=== PATIENT | female | born 1945 | race Caucasian/White ===

== ENCOUNTER 2018-03-29 10:16 | Outpatient (REF) | payer OTHER, SELFPAY ==
[2018-03-29 22:08] LABS: Cholesterol 166 mg/dL (50-200); Glucose 84 mg/dL (70-100); HDL Cholesterol 40 mg/dL (40-60); LDL CHOLESTEROL 115 mg/dL (<100); Triglyceride 53 mg/dL (30-150)
== END 2018-03-29 10:36 ==
LOC: NCHCN 10:16
PROVIDERS: PCP Nurse Practitioner Family; Visit Provider Family Medicine
DX: E78.5 Hyperlipidemia, unspecified (principal); I10 Essential (primary) hypertension
CPT/HCPCS: 80061; 82947; 83721

== ENCOUNTER 2019-02-17 21:53 | Outpatient (REF) | payer OTHER, SELFPAY ==
[2019-02-17 22:01] LABS: Abs Immature Grans 0.03 k/cumm (0.0-0.09); Absolute Basophil Count 0.02 k/cumm (0.0-0.2); Absolute Eosinophil Count 0.07 k/cumm (0.0-0.7); Absolute Lymphocyte Count 1.23 k/cumm (1.2-3.4); Absolute Neutrophil Count 9.55 k/cumm (1.2-6.7); Basophils % 0.2; Eosinophils % 0.6; HCT 44.2 % (36.0-46.0); HGB 14.3 g/dL (12.0-15.5); Immature Grans % 0.3; Lymphocytes % 10.7; Mean Corp. HGB Concentration 32.4 g/dL (32.0-36.0); Mean Corpuscular Hemoglobin 28.9 pg (27.0-33.0); Mean Corpuscular Volume 89.3 fL (80-95); Mean Platelet Volume 10.5 fL (8.0-11.0); Monocytes % 5.2; Platelet Count 315 x1000/uL (130-400); RBC 4.95 m/cumm (4.00-5.20); RBC Distribution Width 12.5 % (11.7-14.6)
[2019-02-17 22:29] LABS: Anion Gap 6.7 mmol/L (3-11); BUN 15 mg/dL (7-18); C-Reactive Protein 0.31 mg/dL (0.0-0.3); CO2 29.3 mmol/L (21.0-32.0); CREATININE 0.99 mg/dL (0.55-1.02); Calcium 9.6 mg/dL (8.5-10.1); Chloride 105 mmol/L (98-107); Estimated GFR 55.29 (mL/min/1.73m2); Glucose 88 mg/dL (74-106); Sodium 141 mmol/L (136-145); TSH 2.34 uIU/mL (0.36-3.74)
== END 2019-02-17 22:13 ==
LOC: NCHCN 21:53
PROVIDERS: PCP Nurse Practitioner Family; Visit Provider Nurse Practitioner Family
DX: R20.2 Paresthesia of skin (principal); I10 Essential (primary) hypertension
CPT/HCPCS: 80048; 85652; 84443; 85025; 86140

== ENCOUNTER 2019-02-21 11:44 | Outpatient (REF) | payer OTHER, SELFPAY ==
[2019-02-21 22:24] LABS: HCT 43.5 % (36.0-46.0); HGB 14.1 g/dL (12.0-15.5); Mean Corp. HGB Concentration 32.4 g/dL (32.0-36.0); Mean Corpuscular Volume 89.3 fL (80-95); Mean Platelet Volume 10.4 fL (8.0-11.0); Platelet Count 328 x1000/uL (130-400); RBC 4.87 m/cumm (4.00-5.20); RBC Distribution Width 12.4 % (11.7-14.6); White Blood Cell Count 7.32 k/cumm (4.4-10.8)
[2019-02-21 23:04] LABS: ESR 13 mm/hr (0-30)
[2019-02-21 23:08] LABS: Vitamin B12 254 pg/mL (193-986)
[2019-02-21 23:18] LABS: C-Reactive Protein 0.33 mg/dL (0.0-0.3)
[2019-02-22 12:28] LABS: Vitamin D 25 Total 7.7 ng/ml (30-100)
== END 2019-02-21 12:04 ==
LOC: NCHCN 11:44
PROVIDERS: PCP Nurse Practitioner Family; Visit Provider Family Medicine
DX: R20.2 Paresthesia of skin (principal); M79.10 Myalgia, unspecified site; Z71.3 Dietary counseling and surveillance; E55.9 Vitamin D deficiency, unspecified
CPT/HCPCS: 82306; 85027; 85652; 82607; 86140

== ENCOUNTER 2019-04-12 14:17 | Outpatient (REF) | payer OTHER, SELFPAY ==
[2019-04-12 23:19] LABS: Vitamin B12 720 pg/mL (193-986)
[2019-04-13 06:48] LABS: Vitamin D 25 Total 27.1 ng/ml (30-100)
== END 2019-04-12 14:37 ==
LOC: NCHCN 14:17
PROVIDERS: PCP Nurse Practitioner Family; Visit Provider Family Medicine
DX: E53.8 Deficiency of other specified B group vitamins (principal); E55.9 Vitamin D deficiency, unspecified
CPT/HCPCS: 82306; 82607

== ENCOUNTER 2020-06-04 13:30 | Outpatient (REF) | payer OTHER, SELFPAY ==
--- NOTE | 2020-06-04 11:30 | PAPFT_PTH ---
PATIENT: Jazmyne Salinas LOC: [facility] U#:[id number] AGE/SX: 74/F ROOM: RE06/04/[address]: Amy Luz : 1945 BED: DIS: 06/04/2020 SPEC #: [id number] RECD: 06/05/20 12:56 STATUS: CK REQ #: [id number] TOMMIE: 06/04/20 11:[address]: Amy Luz DEPT: [facility] Cytology RECD BY: Bharti Davis ENTERED: 06/05/20 12:56 SP TYPE: PAPFT OTHR DR: Rosalina Clarke Tissues: 1 - CX/ENDOCX FOR PAP SMEARS Procedures: PAP THIN PREP/UVM Screening Comments: [id number]
== END 2020-06-04 13:31 | disposition home or self-care (01) ==
LOC: NCHCN 13:30
PROVIDERS: PCP Nurse Practitioner Family; Visit Provider Family Medicine
DX: Z12.72 Encounter for screening for malignant neoplasm of vagina (principal); Z91.89 Other specified personal risk factors, not elsewhere classified
CPT/HCPCS: 88142

== ENCOUNTER 2020-06-06 15:17 | Outpatient (REF) | payer OTHER, SELFPAY ==
--- NOTE | 2020-06-06 15:00 | PAPFT_PTH ---
PATIENT: Jazmyne Salinas LOC: [facility] U#:[id number] AGE/SX: 74/F ROOM: RE06/06/[address]: Argelia Blankenship : 1945 BED: DIS: 06/06/2020 SPEC #: [id number] RECD: 06/06/20 17:36 STATUS: CK REAntonina #: [id number] TOMMIE: 06/06/20 15:[address]: Argelia Blankenship DEPT: [facility] Cytology RECD BY: Bharti Davis ENTERED: 06/06/20 17:36 SP TYPE: PAPFT OTHR DR: Rosalina Clarke Tissues: 1 - CX/ENDOCX FOR PAP SMEARS Procedures: PAP THIN PREP/UVM Screening HPV DNA PROBE Comments: [id number]
== END 2020-06-06 15:18 | disposition home or self-care (01) ==
LOC: LBN 15:17
PROVIDERS: PCP Nurse Practitioner Family; Visit Provider Obstetrics & Gynecology Gynecology
DX: Z12.4 Encounter for screening for malignant neoplasm of cervix (principal); Z91.89 Other specified personal risk factors, not elsewhere classified; Z11.51 Encounter for screening for human papillomavirus (HPV)
CPT/HCPCS: 88142; 87624

== ENCOUNTER 2020-10-31 16:49 | Outpatient (REF) | payer OTHER, SELFPAY ==
[2020-10-31 20:58] LABS: Abs Immature Grans 0.02 10^3/uL (0.0-0.06); Absolute Basophil Count 0.02 10^3/uL (0.0-0.2); Absolute Eosinophil Count 0.03 10^3/uL (0.0-0.7); Absolute Lymphocyte Count 1.37 10^3/uL (1.2-3.4); Absolute Monocyte Count 0.36 10^3/uL (0.1-0.8); Absolute Neutrophil Count 5.99 10^3/uL (1.2-6.7); Basophils % 0.3; Eosinophils % 0.4; HCT 40.3 % (36.0-46.0); HGB 13.3 g/dL (11.2-15.7); Immature Grans % 0.3; Lymphocytes % 17.6; MCV 90.8 fL (80-95); MPV 10.5 fL (8.0-11.0); Monocytes % 4.6; Neutrophils % 76.8; Nucleated RBC 0 %; Platelet Count 272 10^3/uL (130-400); RBC 4.44 10^6/uL (3.93-5.22); RDW 11.3 % (11.7-14.6); RDW-SD 37.8 fL; WBC 7.79 10^3/uL (4.4-10.8)
[2020-10-31 20:59] LABS: C-Reactive Protein 0.47 mg/dL (0.0-0.3); Uric Acid 4.3 mg/dL (2.6-6.0)
[2020-10-31 21:17] LABS: ESR 15 mm/hr (0-30)
[2020-11-04 11:49] LABS: Lyme Ab w Rflx to Lyme Confirm Negative (Negative)
[2020-11-04 17:52] LABS: Anaplasma phagocytophilum Negative (Negative); B. miyamotoi PCR Negative (Negative); Babesia divergens/MO-1 Negative (Negative); Babesia duncani Negative (Negative); Babesia microti Negative (Negative); Ehrlichia chaffeensis Negative (Negative); Ehrlichia ewingii/canis Negative (Negative); Ehrlichia muris eauclairensis Negative (Negative)
== END 2020-10-31 16:50 | disposition home or self-care (01) ==
LOC: NCHCN 16:49
PROVIDERS: PCP Nurse Practitioner Family; Visit Provider Nurse Practitioner Family
DX: M25.561 Pain in right knee (principal)
CPT/HCPCS: 85652; 87798; 84550; 85025; 86140; 86618

== ENCOUNTER 2020-11-08 04:14 | Outpatient (CLI) | payer OTHER, SELFPAY ==
--- NOTE | 2020-11-08 13:32 | DI.RAD_ITS ---
Exam(s) XR KNEE RT 3V AP,LAT,LEONID EXAM: XR KNEE RT 3V AP,LAT,LEONID CLINICAL HISTORY: ACUTE RT KNEE PAIN, [id number],SWELLING TECHNIQUE: COMPARISON: No exams were available for comparison FINDINGS: Three views were obtained. There is moderate narrowing of the medial tibiofemoral cartilaginous join t space and there is mild medial subluxation of the femur on the tibia. There is slight varus angula tion of the knee. Mild marginal osteophytes are noted at the medial tibiofemoral joint. There appears to be a moderate joint effusion period No other significant bony or soft tissue abnormality seen. 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 Joint effusion noted. RADIATION DOSE DELIVERED: Total DLP
== END 2020-11-08 04:34 ==
PROVIDERS: PCP Nurse Practitioner Family; Visit Provider Nurse Practitioner Family
DX: M25.561 Pain in right knee (principal); M17.11 Unilateral primary osteoarthritis, right knee; M25.461 Effusion, right knee
CPT/HCPCS: 73562

== ENCOUNTER 2022-06-16 15:12 | Outpatient (REF) | payer MEDICARE, SELFPAY ==
[2022-06-16 18:06] LABS: Vitamin D 25 Total 46.4 ng/mL (30-100)
[2022-06-16 19:50] LABS: ALT 21 U/L (14-59); AST 22 U/L (15-37); Albumin 3.8 g/dL (3.4-5.0); Alkaline Phosphatase 86 U/L (46-116); Anion Gap 6.4 mmol/L (3-11); BUN 19 mg/dL (7-18); Bilirubin, Total 0.5 mg/dL (0.2-1.0); CO2 28.6 mmol/L (21.0-32.0); Calcium 9.1 mg/dL (8.5-10.1); Calculated LDL 143 mg/dL (<100); Chloride 106 mmol/L (98-107); Cholesterol 201 mg/dL (<200); Estimated GFR 59.12 (mL/min/1.73m2); Glucose 87 mg/dL (74-106); HDL Cholesterol 50 mg/dL (40-60); Potassium 4.2 mmol/L (3.5-5.1); Sodium 141 mmol/L (136-145); Triglyceride 42 mg/dL (<150)
== END 2022-06-16 15:13 | disposition home or self-care (01) ==
LOC: NCHCN 15:12
PROVIDERS: PCP Family Medicine; Visit Provider Family Medicine
DX: Z00.00 Encounter for general adult medical examination without abnormal findings (principal); E78.5 Hyperlipidemia, unspecified; I10 Essential (primary) hypertension; E55.9 Vitamin D deficiency, unspecified
CPT/HCPCS: 80053; 80061; 82306

== ENCOUNTER 2024-03-17 00:11 | Outpatient (CLI) | payer MEDICARE, OTHER, SELFPAY ==
--- NOTE | 2024-03-17 14:30 | DI.US_ITS ---
APPROVED REPORT EXAM: Comprehensive 2D, Doppler, and color-flow Echocardiogram Patient Location: Out-Patient Superintendent [employer]: Kevin Tabor RDCS (AE) Indications: New systolic murmur Conclusion Normal left ventricular wall thickness and chamber size. Ejection fraction is 65%. Wall motion is n ormal Normal right ventricular size and function Both atria are normal in size There are no structural valvular abnormalities Mild mitral and tricuspid regurgitation Ascending aorta measures 3.64 cm Wall motion Left Ventricle The left ventricle is normal size. The left ventricular systolic function is normal. The left ventric ular ejection fraction is within the normal range. There is normal left ventricular wall thickness. T here is normal LV segmental wall motion. There is no ventricular septal defect visualized. LVEF is 65 -70%. Right Ventricle The right ventricle is normal size. The right ventricular systolic function is normal. Atria The left atrium size is normal. The right atrium size is normal. The interatrial septum is intact wit h no evidence for an atrial septal defect. Aortic Valve The aortic valve is normal in structure. Aortic valve is trileaflet. There is no aortic valvular sten osis. Trace aortic regurgitation. Mitral Valve The mitral valve is normal in structure. No evidence of mitral valve stenosis. Mild mitral regurgitat ion. Tricuspid Valve The tricuspid valve is normal in structure. There is no tricuspid valve stenosis. Mild tricuspid regu rgitation. The RVSP is 33.2 mmHg. Pulmonic Valve The pulmonary valve is normal in structure. There is no pulmonic valvular stenosis. Mild pulmonic reg urgitation. Great Vessels The aortic root is normal in size. The ascending aorta is mildly dilated. Aortic arch is not well vis ualized. IVC is normal in size and collapses >50% with inspiration. Pericardium There is no pericardial effusion. 2D Dimensions IVSD d PLAX 0.76 cm F: 0.6-1.0 Ao Root d 2.21 cm F: 2.7 - 3.3 LVPW d PLAX 0.83 cm F: 0.6 - 1.0 Ao Asc Diam d 3.64 cm F: 2.3 - 3.1 LVID d PLAX 3.79 cm F: 3.8 - 5.2 LVDs 2.31 cm F: 2.2 - 3.5 LV EF Teichholz 70.3 % FS 39.08 % LV EDV (Teich) 61.7 mL LV ESV (Teich) 18.3 mL Stroke Vol Index (Teich) 26.44 M-Mode TAPSE 3.11 cm (M/F) >1.7 Auto EF LV EDV A4C 75.2 mL LV EDV A2C 81.0 mL LV EDV BP 77.4 mL LV ESV A4C 26.7 mL LV ESV A2C 24.8 mL LV ESV BP 26.7 mL LVEF(%) A4C 64.5 % LVEF(%) A2C 69.4 % LVEF(%) BP 65.5 % LV SV A4C 48.5 ml LV SV A2C 56.2 ml LV SV BP 50.7 ml LV CO A4C 4.1 L/min LV CO A2C 4.3 L/min LV CO BP 4.2 L/min HR A4C 83.72 BPM HR A2C 76.28 BPM LV EDV Index (BP) LA Volume LA Length A4C 3.0 cm LA Length A2C 3.3 cm LA Area A4C s 4.96 cm2 LA Area A2C s 6.77 cm2 LA Vol A4C A-L 6.93 mL LA Vol A2C A-L 11.70 mL LA Vol Biplane A-L 9.5 mL LA Vol/BSA A4C A-L LA Vol/BSA A2C A-L LA Vol/BSA BP A-L 5.8 mL/m2 LA Vol A4C MOD 6.3 mL LA Vol A2C MOD 10.2 mL LA Vol BP MOD 8.3 mL RA Volume RA Area A4C 6.1 cm2 RA ESV A4C (A-L) 11.0mL RA Vol/BSA A4C A-L RA Length A4C 2.8 cm RA ESV A4C (MOD) 10.2mL LV Diastology MV E' medial 0.092 (>0.07 m/s) MV E Vmax 0.68 (0.4-1.3 m/s) MV E/E' MED 7.43 (<14) MV A Vmax 0.85 (0.4-1.3 m/s) MV E' lateral 0.077 (>0.1 m/s) E/A Ratio 0.8 MV E/E' LAT 8.92 (<14) MV E' Average 0.084 m/s MV E/E'(average) 8.11 Aortic Valve AoV Vmax 1.12 m/s LVOT Vmax 1.07 m/s AoV Peak Grad 5.1 mmHg LVOT Peak Grad 4.6 mmHg AoV Area (Vmax) 2.29 cm2 LVOT VTI 0.222 m AoV VTI 0.277 m LVOT Mean Grad 2.1 mmHg AoV Mean Peter. 0.81 m/s LVOT SV 53.13 mL AoV Mean Grad 2.9 mmHg LVOT Diam s 1.70 cm AoV Area (VTI) 1.92 cm2 AV Regurg Peak Gr. 5.05 mmHg Velocity Ratio 0.96 Mitral Valve MV DT 120 (160-240 msec) MV Vmax TIPS 1.18 m/s MV Mean Grad 2.5 (<2mmHg) MV VTI 0.253 m Pulmonary Valve PV Vmax 0.89 (0.5-1.5 m/s) RVOT Vmax 0.69 m/s PV Peak Grad 3.2 mmHg RVOT Peak Gr. 1.9 mmHg PV Mean Peter 0.62 m/s RVOT VTI 0.163 m PV Mean Grad 1.8 mmHg RVOT Mean Gr. 1.0 mmHg Tricuspid Valve RA Pressure 3.00 mmHg TR Vmax 2.75 m/s TR Peak Grad 30.1 mmHg RVSP (TR) 33.2 mmHg
== END 2024-03-17 00:31 ==
PROVIDERS: PCP Family Medicine; Visit Provider Family Medicine
DX: R01.1 Cardiac murmur, unspecified (principal)
CPT/HCPCS: 93306

== ENCOUNTER 2025-02-06 08:23 | Emergency (ER) | payer MEDICARE, OTHER, SELFPAY ==
[2025-02-06] VITALS (29 sets, daily range): BP systolic 145–189; BP diastolic 63–113; PULSE 72–105; RESP 7–28; TEMP 36.5; O2SAT 96–100
--- NOTE | 2025-02-06 08:15 | RT.EKG_ITS ---
APPROVED REPORT Exam: Resting ECG Reason for Exam: Syncope Patient Location: E HR:93 bpm ECG Measurements Heart Rate 93 AXIS NM 200 P 65 QRSd 69 QRS 56 QT 363 T 53 QTc 454 Conclusion Sinus rhythm...normal P axis, V-rate 60- 99 Consider anteroseptal infarct...Q >30mS, dimin R, V1-V2 No Occlusion RI
[2025-02-06 09:01] LABS: Abs Immature Grans 0.02 10^3/uL (0.0-0.06); HCT 43.7 % (36.0-46.0); HGB 14.8 g/dL (11.2-15.7); Immature Grans % 0.2 %; MCH 30.3 pg (27.0-33.0); MCHC 33.9 % (32.0-36.0); MCV 89 fL (80-95); MPV 9.7 fL (8.0-11.0); Platelet Count 268 10^3/uL (130-400); RBC 4.89 10^6/uL (3.93-5.22); RDW 11.4 % (11.7-14.6); RDW-SD 37.2 fL; WBC 8.38 10^3/uL (4.4-10.8)
[2025-02-06] MEDS: Normal Saline 500 ML IV (09:01)
[2025-02-06] MEDS: Metoclopramide 10 MG/2 ML VIAL 5 MG IVP (09:01)
[2025-02-06 09:22] LABS: Troponin I 3 ng/L (<35)
[2025-02-06 09:23] LABS: ALT 17 U/L (10-49); AST 26 U/L (<34); Albumin 4.6 g/dL (3.2-5.0); Alkaline Phosphatase 93 U/L (46-116); Anion Gap 8.3 mmol/L (3-11); BUN 17 mg/dL (9-23); Bilirubin, Total 0.80 mg/dL (0.2-1.2); CO2 26.7 mmol/L (20.0-31.0); Calcium 9.3 mg/dL (8.3-10.6); Chloride 107 mmol/L (98-107); Glucose 101 mg/dL (74-106); Potassium 3.8 mmol/L (3.5-5.1); Sodium 142 mmol/L (136-145); Total Protein 7.5 g/dL (5.7-8.2)
[2025-02-06 09:25] LABS: TSH (W/Ref FT4) 2.41 uIU/mL (0.55-4.78)
[2025-02-06 10:24] LABS: COVID-19 PCR Negative (Negative); RSV PCR Negative (Negative)
[2025-02-06 10:26] LABS: Glucose Negative (Negative)
[2025-02-06 10:29] LABS: Troponin I 4 ng/L (<35)
--- NOTE | 2025-02-06 14:41 | ED.GENADUL_ITS ---
Discharge Plan Disposition Patient Disposition: Home Condition: Stable Discharge Details Clinical Impression: Nausea, Light-headed feeling Primary Care Provider: Amy Luz ED Provider: Bharti Wild Home Meds and New Rx's Prescriptions: New metoclopramide HCl [Reglan] 5 mg tablet 5 mg PO Q8H PRNQty: 10 0RF Rx Instructions: as needed for nausea Continued Vitamin B-12 1,000 mcg/mL drops 1 ml PO DAILY cholecalciferol (vitamin D3) 50 mcg (2,000 unit) tablet 50 mcg PO DAILY Discharge Instructions Instructions: Dizziness, Adult ED, Nausea and Vomiting, Adult ED Additional Instructions: Take Reglan as needed for nausea [place] diet as tolerated, I would stick mostly to chicken noodle soup, Jell-O, popsicles, juice, and stella ari Recheck with primary care physician tomorrow and return earlier should you have new or worsening complaints, try to rest for the remainder of today blood pressure recheck by pcp tomorrow Stand Alone Forms: Portal Information Referrals: Amy Luz [Primary Care Provider, Medicine] Discharge Data Discharge Date/Time-TO BE ENTERED AT DEPARTURE: 02/06/25 11:16 HPI General Date/Time Provider Initiated Documentation: 02/06/25 08:30 . HPI Narrative: 79-year-old female presenting with lightheadedness and nausea which started last evening. Denies known precipitating events. Denies known sick contacts. Denies any dizziness. Denies history of similar symptoms in the past. Denies any headache chest pain or shortness of breath. Denies any calf pain or swelling. Has not vomited and denies any diarrhea or trauma. Denies any medications that she takes on a daily basis and does have a primary care physician. Does not smoke, drink, or use any illicit substances. Related Data Home Medications ?Medication ?Instructions ?Recorded ?Confirmed cholecalciferol (vitamin D3) 50 50 mcg PO DAILY 02/06/25 mcg (2,000 unit) tablet cyanocobalamin (vitamin B-12) 1 ml PO DAILY 06/06/20 1 04/09/24 1,000 mcg/mL oral drops (Vitamin B-12) metoclopramide HCl 5 mg tablet 5 mg PO Q8H PRN #10 tab s 02/06/25 (Reglan) Previous Rx's ?Medication ?Instructions ?Recorded metoclopramide HCl 5 mg tablet 5 mg PO Q8H PRN #10 tab s 02/06/25 (Reglan) Allergies Allergy/AdvReac Type Severity Reaction Status Date / Time No Known Allergies Allergy Verified 02/06/25 08:30 General Stated Complaint: GenMedical THIAGO: 3 Exam Narrative Exam Narrative: Alert and oriented 79-year-old female in no acute distress cranial nerves II through XII intact, pupils equal round reactive to light and accommodation negative heel velez, negative pronator drift, ambulatory steady gait cardiac rate rhythm regular lungs clear to auscultation, no calf pain or swelling, no abdominal tenderness Course Vital Signs Vital signs: Vital Signs Temperature 36.5 C 02/06/25 08:26 Pulse 95 H 02/06/25 08:26 Respiratory Rate 18 02/06/25 08:26 Blood Pressure 179/82 H 02/06/25 08:26 Pulse Oximetry 96 02/06/25 08:26 Temperature 36.5 C 02/06/25 08:30 Pulse 79 02/06/25 10:50 Pulse 80 02/06/25 10:50 Respiratory Rate 11 L 02/06/25 10:50 Respiratory Effort Normal, Non-Labored 02/06/25 08:54 Respiratory Depth Normal 02/06/25 08:54 Respiratory Pattern Normal 02/06/25 08:54 Blood Pressure 169/102 H 02/06/25 10:46 Blood Pressure Mean 123 02/06/25 10:46 Pulse Oximetry 99 02/06/25 10:50 Lab/Test Results Lab/Test Results: Laboratory Tests Range/Units 02/06/25 02/06/25 02/06/25 08:44 09:40 09:46 WBC (4.4-10.8) 10^3/uL 8.38 RBC (3.93-5.22) 10^6/uL 4.89 Hgb (11.2-15.7) g/dL 14.8 Hct (36.0-46.0) % 43.7 MCV (80-95) fL 89 MCH (27.0-33.0) pg 30.3 MCHC (32.0-36.0) % 33.9 RDW (11.7-14.6) % 11.4 L Plt Count (130-400) 10^3/uL 268 MPV (8.0-11.0) fL 9.7 Immature Gran % % 0.2 Neutrophils % % 78.3 Lymphocytes % % 14.4 Monocytes % % 6.0 Eosinophils % % 0.6 Basophils % % 0.5 Nucleated RBC % (0.0-0.3) % 0.0 Absolute Neutrophils (1.2-6.7) 10^3/uL 6.56 Absolute Lymphocytes (1.2-3.4) 10^3/uL 1.21 Absolute Monocytes (0.1-0.8) 10^3/uL 0.50 Absolute Eosinophils (0.0-0.7) 10^3/uL 0.05 Absolute Basophils (0.0-0.2) 10^3/uL 0.04 Sodium (136-145) mmol/L 142 Potassium (3.5-5.1) mmol/L 3.8 Chloride (98-107) mmol/L 107 Carbon Dioxide (20.0-31.0) mmol/L 26.7 Anion Gap (3-11) mmol/L 8.3 BUN (9-23) mg/dL 17 Creatinine (0.55-1.02) mg/dL 0.81 Est GFR (CKD-EPI 2020) (mL/min/1.73m2) 68.48 Glucose (74-106) mg/dL 101 Calcium (8.3-10.6) mg/dL 9.3 Total Bilirubin (0.2-1.2) mg/dL 0.80 AST (<34) U/L 26 ALT (10-49) U/L 17 Alkaline Phosphatase (46-116) U/L 93 Troponin I (<35) ng/L 3 4 Total Protein (5.7-8.2) g/dL 7.5 Albumin (3.2-5.0) g/dL 4.6 TSH (0.55-4.78) uIU/mL 2.41 Urine Color (Yellow) Urine Clarity (Clear) Urine pH (5-8) Ur Specific Thornton (1.005-1.025) Urine Protein (Neg-Trace) mg/dL Urine Ketones (Negative) mg/dL Urine Blood (Negative) Urine Nitrite (Negative) Urine Bilirubin (Negative) Urine Urobilinogen (Up to 0.2) mg/dL Ur Leukocyte Esterase (Negative) Urine Glucose (Negative) mg/dL COVID-19 Source Nasopharynx SARS-CoV-2 (PCR) (Negative) Negative Influenza Type A (PCR) (Negative) Negative Influenza Type B (PCR) (Negative) Negative RSV (PCR) (Negative) Negative Range/Units 02/06/25 10:12 WBC (4.4-10.8) 10^3/uL RBC (3.93-5.22) 10^6/uL Hgb (11.2-15.7) g/dL Hct (36.0-46.0) % MCV (80-95) fL MCH (27.0-33.0) pg MCHC (32.0-36.0) % RDW (11.7-14.6) % Plt Count (130-400) 10^3/uL MPV (8.0-11.0) fL Immature Gran % % Neutrophils % % Lymphocytes % % Monocytes % % Eosinophils % % Basophils % % Nucleated RBC % (0.0-0.3) % Absolute Neutrophils (1.2-6.7) 10^3/uL Absolute Lymphocytes (1.2-3.4) 10^3/uL Absolute Monocytes (0.1-0.8) 10^3/uL Absolute Eosinophils (0.0-0.7) 10^3/uL Absolute Basophils (0.0-0.2) 10^3/uL Sodium (136-145) mmol/L Potassium (3.5-5.1) mmol/L Chloride (98-107) mmol/L Carbon Dioxide (20.0-31.0) mmol/L Anion Gap (3-11) mmol/L BUN (9-23) mg/dL Creatinine (0.55-1.02) mg/dL Est GFR (CKD-EPI 2020) (mL/min/1.73m2) Glucose (74-106) mg/dL Calcium (8.3-10.6) mg/dL Total Bilirubin (0.2-1.2) mg/dL AST (<34) U/L ALT (10-49) U/L Alkaline Phosphatase (46-116) U/L Troponin I (<35) ng/L Total Protein (5.7-8.2) g/dL Albumin (3.2-5.0) g/dL TSH (0.55-4.78) uIU/mL Urine Color (Yellow) Yellow Urine Clarity (Clear) Clear Urine pH (5-8) 7.0 Ur Specific Thornton (1.005-1.025) 1.010 Urine Protein (Neg-Trace) mg/dL Negative Urine Ketones (Negative) mg/dL Negative Urine Blood (Negative) Negative Urine Nitrite (Negative) Negative Urine Bilirubin (Negative) Negative Urine Urobilinogen (Up to 0.2) mg/dL 0.2 Ur Leukocyte Esterase (Negative) Negative Urine Glucose (Negative) mg/dL Negative COVID-19 Source SARS-CoV-2 (PCR) (Negative) Influenza Type A (PCR) (Negative) Influenza Type B (PCR) (Negative) RSV (PCR) (Negative) Medical Decision Making Results: CBC CMP urinalysis flu COVID all within normal limits, EKG does not show significant acute abnormality and patient has 2 negative troponins which is reassuring. She is feeling improvement after fluids and antiemetics exam clear evidence of a BPPV presentation certainly no indication for CT imaging of patient's head. She may have certainly a virus. She is encouraged to follow-up closely with her primary care physician in the outpatient setting she has been observed on telemetry for approximately 3 hours in the emergency room without acute abnormality. She is not able to tolerate p.o. and requesting discharge home. Return precautions reviewed patient expressed understanding. 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
== END 2025-02-06 11:16 | disposition home or self-care (01) ==
PROVIDERS: Emergency Provider Physician Assistant; PCP Family Medicine
DX: R42 Dizziness and giddiness (principal); R11.0 Nausea
CPT/HCPCS: 36415; 80053; 87637; 93005; 96361; 96374; 99284; 81003; 84443; 84484; 85025; 93010; J2765

== ENCOUNTER 2025-02-15 15:47 | Outpatient (REF) | payer MEDICARE, OTHER, SELFPAY | END 2025-02-15 15:48 | disposition home or self-care (01) | LOC: NCHCN 15:47 | PROVIDERS: PCP Family Medicine; Visit Provider Family Medicine | DX: I10 Essential (primary) hypertension (principal) | CPT/HCPCS: 82043; 82570 ==